=== PATIENT | female | born 1980 | race Two or more races ===

== ENCOUNTER 2018-07-02 19:46 | Emergency (ER) | payer MEDICAID ==
[~2018-07-02] VITALS: Ht 165.1 cm; Wt 67.6 kg
[2018-07-02 19:50] VITALS: BP 148/96
[2018-07-02] MEDS ORDERED: ONDANSETRON HCL 4 MG/2 ML VIAL IM ONE (21:45)
[2018-07-02] MEDS ORDERED: MEPERIDINE HCL (50 MG/ML) 1 ML VIAL IM ONE (21:45)
== END 2018-07-02 23:20 | disposition home or self-care (01) ==
LOC: EDBD 19:46 → ER 19:46
DX: S20.212A Contusion of left front wall of thorax, initial encounter (principal); M62.838 Other muscle spasm; M54.2 Cervicalgia; M25.511 Pain in right shoulder; R51 Headache; V43.52XA Car driver injured in collision with other type car in traffic accident, initial encounter; Y93.89 Activity, other specified; Y92.488 Other paved roadways as the place of occurrence of the external cause; Y99.8 Other external cause status
CPT/HCPCS: 70450; 71046; 71250; 72125; 73020; 96372; 99284; J2175; J2405